=== PATIENT | male | born 1995 | race Caucasian/White ===

== ENCOUNTER 2018-01-04 10:33 | Emergency (ER) | payer MEDICAID ==
[2018-01-04] MEDS: DIPHTH/TET/ACEL PERTUSS (ADULT) 0.5 ML VIAL IM* (13:08)
[2018-01-04] MEDS: BACITRACIN 0.9 GM OINT TOP (13:09)
== END 2018-01-04 13:40 | disposition home or self-care (01) ==
LOC: FTE 10:33
DX: S00.01XA Abrasion of scalp, initial encounter (principal); X58.XXXA Exposure to other specified factors, initial encounter; Y92.89 Other specified places as the place of occurrence of the external cause; Z23 Encounter for immunization
CPT/HCPCS: 90471; 90715; 99284-25